=== PATIENT | male | born 1955 | race Caucasian/White ===

== ENCOUNTER 2017-08-23 14:29 | Emergency (ER) | payer OTHER ==
--- NOTE | 2017-08-23 15:24 | ERPHSYRPT ---
- History of Present Illness Time Seen by Provider: 08/23/17 15:15 Source: patient Exam Limitations: no limitations Patient Subjective Stated Complaint: sudden onset of pain to left knee while at work at the [employer] today. denies any injury but did state he stepped in a hole at work today. Triage Nursing Assessment: to room per w/c. unable to bear weight on left knee at this time. no swelling or deformity noted. good pedal pulse and good cap refill. Physician History: 61-year-old white male arrives with complaint of pain in left posterior knee of sudden onset since 12:30 this afternoon. Patient states he was at work stepped in a hole felt a pop in his posterior left knee is having pain in the left knee states he is unable to bear weight secondary to pain in the left knee. He has pain with movement of the left knee. Past medical history includes DVT of left thigh, degenerative disc disease,. Past surgical history includes back surgery, and rotator cuff surgery. Social history positive tobacco use Method of Injury: other (stepped in a hole at work) Occurred: this afternoon (12:30 PM today) Severity of Pain-Max: moderate Severity of Pain-Current: moderate Lower Extremities Pain: knee: left Modifying Factors: Improves With: nothing Associated Symptoms: none Allergies/Adverse Reactions: No Known Drug Allergies Allergy (Unverified 08/23/17 14:47) Home Medications: Apixaban [Eliquis] 2.5 mg PO BID 08/23/17 [History] Atorvastatin Calcium [Lipitor 20MG Tablet] 20 mg PO DAILY 08/23/17 [History] Meloxicam [Mobic] 7.5 mg PO DAILY 08/23/17 [History] Hx Tetanus, Diphtheria Vaccination/Date Given: No Hx Influenza Vaccination/Date Given: No Hx Pneumococcal Vaccination/Date Given: No - Review of Systems Constitutional: No Fever, No Chills Eyes: No Symptoms Ears, Nose, & Throat: No Symptoms Respiratory: No Cough, No Dyspnea Cardiac: No Chest Pain, No Edema, No Syncope Abdominal/Gastrointestinal: No Abdominal Pain, No Nausea, No Vomiting, No Diarrhea Genitourinary Symptoms: No Dysuria Musculoskeletal: Other (left knee pain) Skin: No Rash Neurological: No Dizziness, No Focal Weakness, No Sensory Changes Psychological: No Symptoms Endocrine: No Symptoms All Other Systems: Reviewed and Negative - Past Medical History Pertinent Past Medical History: Yes Cardiac History: Deep Vein Thrombosis - Past Surgical History Past Surgical History: Yes Musculoskeletal: Orthopedic Surgery Other Surgical History: rotater cuff, back surgery - Social History Smoking Status: Current every day smoker How long have you smoked: 40 Exposure to second hand smoke: No Drug Use: none Patient Lives Alone: No - Nursing Vital Signs Nursing Vital Signs: Initial Vital Signs Temperature 97.3 F 08/23/17 14:41 Pulse Rate 64 08/23/17 14:41 Respiratory Rate 16 08/23/17 14:41 Blood Pressure 145/71 08/23/17 14:41 O2 Sat by Pulse Oximetry 97 08/23/17 14:41 Pain Scale Pain Intensity 3 - Physical Exam General Appearance: mild distress Eyes, Ears, Nose, Throat Exam: moist mucous membranes Neck Exam: non-tender, supple Cardiovascular/Respiratory Exam: chest non-tender, normal breath sounds, regular rate/rhythm, no respiratory distress Gastrointestinal/Abdominal Exam: non-tender, guarding Back Exam: normal inspection, No vertebral tenderness Hips Exam: bilateral: non-tender, normal inspection, normal range of motion, no evidence of injury Legs Exam: bilateral leg: non-tender, normal inspection, normal range of motion , no evidence of injury Knees Exam: right knee: non-tender, normal inspection, normal range of motion, no evidence of injury, left knee: other (pain with palpation posterior left knee , decreased rom left knee secondary to pain) Ankle Exam: bilateral ankle: non-tender, normal inspection, normal range of motion, no evidence of injury Foot Exam: bilateral foot: non-tender, normal inspection, normal range of motion , no evidence of injury DTR - Lower Extremities Exam: ankle (R): 2+, ankle (L): 2+ Neuro/Tendon Exam: normal sensation, normal motor functions Mental Status Exam: alert, oriented x 3, cooperative Skin Exam: normal color, warm, dry SpO2 Interpretation: normal (97%) SpO2: 97 Oxygen Delivery: Room Air - Course Nursing assessment & vital signs reviewed: Yes - Radiology Exams Left Knee X-ray Interpretation: Interpreted by me, No Fracture, No Subluxation Ordered Tests: Active Orders 24 hr Category Date Time Status KNEE (3 VIEWS) Stat Exams 08/23/17 15:19 Taken [employer] SCREEN Stat Lab 08/23/17 Ordered - Progress Progress: improved Progress Note: 08/23/17 15:23 61-year-old white male arrives with complaint of pain in his left knee after stepping in a hole at work. He has pain with standing and pain with any movement of his left knee. Will go ahead and obtain x-ray of the left knee. Patient was offered a Everly for his pain he does not want any pain medications at this time patient is on throughout also will not be able to give patient nonsteroidals. 08/23/17 15:45 X-ray left knee no fractures no subluxation. Left knee is reexamined. Anterior, posterior drawer within normal limits patient does have pain with full extension of his left knee. Medial collateral lateral collateral ligaments are intact. Will go ahead Tyrel wrap to left knee place patient on crutches. Patient will need follow back up with his company physician patient was offered a Everly for pain he does not want any pain medications. . - Departure Time of Disposition: 15:46 Departure Disposition: Home Clinical Impression: Left knee pain Qualifiers: Chronicity: acute Qualified Code(s): M25.562 - Pain in left knee Strain of left knee Qualifiers: Encounter type: initial encounter Qualified Code(s): S86.912A - Strain of unspecified muscle(s) and tendon(s) at lower leg level, left leg, initial encounter Condition: Fair Critical Care Time: No Referrals: DOCTOR,NO FAMILY [Primary Care Provider] - Instructions: Knee Pain Additional Instructions: Return home. Ice and elevate left knee 24-48 hours. Tylenol every 4 hours as needed for pain. Crutches weightbearing as tolerated. Follow-up with your company physician. Return for acute distress or for severe symptoms.
[2017-08-23 15:43] VITALS: PULSE 62
[2017-08-23 16:16] VITALS: BP 153/84; O2SAT 98
--- NOTE | 2017-08-23 22:29 | XRAY ---
Indication: Pain following injury. Comparison: None 3 views of the left knee demonstrates minimal medial joint space narrowing. No other bony, articular, or soft tissue abnormalities.
== END 2017-08-23 16:16 | disposition home or self-care (01) ==
LOC: ED 14:29
DX: M25.562 Pain in left knee (principal); S86.912A Strain of unspecified muscle(s) and tendon(s) at lower leg level, left leg, initial encounter; Y99.0 Civilian activity done for income or pay; W17.2XXA Fall into hole, initial encounter; Y92.64 Mine or pit as the place of occurrence of the external cause
CPT/HCPCS: 73562; 80307; 99283